=== PATIENT | female | born 1965 | race Caucasian/White ===

== ENCOUNTER → 2017-09-06 | Outpatient (CLI) | payer BC, OTHER ==
--- NOTE | ~2017-09-06 | CNG ---
[facility] [place] [address] CYTO-NONGYN REPORT PROCEDURE Name: JAZIEL ROMERO Room #: REG [facility].#: [id number] Admission: 09/06/17 Date of : 61 Discharge: Report #: [id number] Path Case #: [id number] CYTOPATHOLOGY REPORT COLLECTION DATE: 09/06/2017 RECEIVED DATE: 09/06/2017 SUBMITTING PHYS: Dr. Dakota Love OTHER PHYS: Dr.Michael Ana Cervantes CLINICAL HISTORY: Lung mass; See also [id number] SPECIMEN(S) RECEIVED: A.Bronchial wash B.Fine needle aspiration, Left mainstem C.Brushing, Left mainstem * * * * * * * * * * * * FINAL DIAGNOSIS: A. Bronchial wash: - No malignant cells identified. Bronchial epithelial cells along with macrophages present. B. 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 PLEASE SEE COMMENT. - Interpretation limited by extensive air-drying artifact. C. Lung, left mainstem, brushing: SCANT ATYPICAL CELLS PRESENT CANNOT EXCLUDE NEOPLASTIC CELLS. - Interpretation limited by extensive air-drying artifact. COMMENT: The cell block material performed from the fine needle aspirate of the "left mainstem" shows cells with a low nuclear to cytoplasmic ratio, and monotonous appearing nuclei in an organoid fashion. The background shows marked acute inflammation. Immunohistochemical stains are performed. (Cell block) TTF-1 strong nuclear reactivity Synaptophysin granular reactivity Chromogranin- reactive CD68 nonreactive within the neoplastic cells CD1a - nonreactive CK7 - nonreactive Based on morphology, as well as immunohistochemical stains, the findings are consistent with the rendered diagnosis. Co-review: Dr. Yissel Damian. Findings are relayed to Dr. Dakota Love at 11:05 AM on 09/08/17. [address] [address] CYTO-NONGYN REPORT PROCEDURE Name: JAZIEL ROMERO [facility] [id number] Admission: 09/06/17 Date of : 61 Discharge: Report #: [id number] Path Case #: [id number] The case was discussed at the Thoracic conference on 09/08/17. The findings are incomplete agreement with the concurrent biopsy tissue [id number]. Please see separate report for complete details. (IUV:alexia; 09/07/2017) PATHOLOGIST: Joy Finn M.D. REPORT ELECTRONICALLY SIGNED BY: Joy Finn M.D. DATE/TIME: 09/08/2017 11:06 * * * * * * * * * * * * GROSS PATHOLOGY: A. Bronchial wash: The specimen is submitted unfixed, labeled "Jaziel Romero". Received by the Cytology Department is 33 mL of cloudy red fluid. One ThinPrep slide was prepared. B. Fine needle aspiration, Left mainstem: The specimen is labeled "Jaziel Romero" and consists of four fixed slides. Twenty-two mL of cloudy red fluid in formalin from the needle rinse is also submitted and a formalin fixed cell block only was prepared from this material. C. Brushing, Left mainstem: The specimen is labeled "Jaziel Romero" and consists of a brush tip in fixative and four fixed slides. One ThinPrep slide was prepared. (mm 09.06.2017) CVICU NURSE(S): [facility] INITIAL CPT CODE(S): A; 11902 B; 23797, 39102, 78729, 65685, 41835, 99951, 32419, 08681 C; 97622 Professional services performed by [facility] at [facility] [address], [place] [address] Technical services performed by [facility] at [address] [place] [address]., [address], [place] [address]. [facility] [address] [place] [address], [address] [place] [address] PHONE: [phone] DIRECTOR: Jose De Jesus Jj M.D. * * * END OF REPORT * * *
--- NOTE | ~2017-09-06 | P ---
[facility] [place] [address] PROCEDURE REPORT Name: HIMA VALENTIN CARMELO Room #: REG [facility] Chrissie#: [id number] Admission: 09/06/17 Attend Phys: Dakota Love MD Discharge: Date of : 61 Report #: [id number] THIS REPORT FOR: //name// CC: Rey Love DATE OF SERVICE: 09/06/2017 PROCEDURE: Fiberoptic bronchoscopy with biopsy of right mainstem bronchus lesion. INDICATION: Endobronchial mass. ASA classification class 2. PROCEDURE NOTATION: After discussing risks, benefits of planned procedure with the patient, she desired to proceed. After obtaining informed consent, she was brought to [facility] room 3, was placed on continuous cardiopulmonary monitoring and supplemental oxygen, then given 4% lidocaine nebulized to anesthetize the upper respiratory tract. Once accomplished, she received conscious sedation, a total of 8 mg of Versed and 25 mcg of fentanyl were titrated during the procedure to provide adequate sedation. Once accomplished, bronchoscope was passed through an oral biteblock until the vocal cords were visualized. Vocal cords moved appropriately both before and after procedure. 1% lidocaine was instilled in the vocal cords to provide topical anesthesia. Bronchoscope was then passed in the trachea, which appeared normal. 1% lidocaine was instilled in the tracheobronchial tree bilaterally to provide topical anesthesia. Once complete, airways were surveyed. FINDINGS: Mainstem, lobar, segmental and subsegmental bronchi were all explored on the right and appeared patent without any significant anatomic variation or disease. Left mainstem bronchus about 2-2.5 cm from the mckayla had an endobronchial mass that did not allow further visualization beyond, although instruments could be passed beyond this lesion. The lesion appeared somewhat shiny and vascular, and smooth surface. Endobronchial 19 gauge needle aspirates were obtained of the lesion. Several brushings and then forceps biopsies were obtained of the lesion. Minor bleeding was noted of less than 20 mL. The patient tolerated it well. No noted complications. IMPRESSION: Left mainstem bronchus endobronchial lesion about 2-2.5 cm from the main mckayla, status post multiple biopsies as outlined above. [facility] [address] [place] [address] PROCEDURE REPORT Name: BARBIEHIMA Room #: REG [facility] Chrissie#: [id number] Admission: 09/06/17 Attend Phys: Dakota Love MD Discharge: Date of : 61 Report #: [id number] PLAN: Await cytopathology and histopathology. <ELECTRONICALLY SIGNED> By: Dakota Love MD 09/08/17 1818 [id number] 1213 Dakota Love MD /nt
--- NOTE | ~2017-09-06 | S ---
[facility] [place] [address] SURGICAL PATH RPT PROCEDURE Name: JAZIEL ROMERO Room #: REG [facility].#: [id number] Admission: 09/06/17 Date of : 61 Discharge: Report #: [id number] Path Case #: [id number] PATHOLOGY REPORT COLLECTION DATE: 09/06/2017 RECEIVED DATE: 09/06/2017 SUBMITTING PHYS: Dr. Dakota Love OTHER PHYS: Dr.Michael Ana Cervantes SPECIMEN(S) RECEIVED: A.Biopsy forceps left mainstem lesion * * * * * * * * * * * * FINAL DIAGNOSIS: Lung, left main stem lesion, forceps biopsy: - COMPATIBLE WITH A WELL-DIFFERENTIATED NEUROENDOCRINE TUMOR, (CARCINOID TUMOR). COMMENT: Examination shows alveolar spaces filled with monotonous appearing cells with ample cytoplasm and a low nuclear to cytoplasmic ratio. Mitotic figures, necrosis or gland formation are not identified. There are no keratin pearls present either. Immunohistochemical stains are performed. (Block A1) TTF-1 strong nuclear reactivity Synaptophysin granular reactivity Chromogranin- reactive CD68 nonreactive within the neoplastic cells CD1a - nonreactive AE1/AE3 - reactive Co-review: Dr. Yissel Damian. Findings are communicated to Dr. Kimberley Love at 11:00 Am on 09/08/17. The concurrent cytology [id number] showed a carcinoid tumor in the fine needle aspirate of the left main stem. Please see separate report for details. (IUV:db; 09/07/2017) PATHOLOGIST: Joy Finn M.D. REPORT ELECTRONICALLY SIGNED BY: Joy Finn M.D. DATE/TIME: 09/08/2017 11:26 * * * * * * * * * * * * GROSS PATHOLOGY: Received in formalin labeled "Jaziel Romero LMS biopsy," are [address] [place] [id number] SURGICAL PATH RPT PROCEDURE Name: JAZIEL ROMERO Room #: REG [facility] Chrissie#: [id number] Admission: 09/06/17 Date of : 61 Discharge: Report #: [id number] Path Case #: [id number] segments of bond soft tissue measuring 1.5 x 0.8 x 0.2 cm in aggregate dimensions and ranging from 0.3 to 0.7 cm in maximum dimension. The specimen is submitted entirely in cassette A1. (TSD; 09/06/2017) CLINICAL HISTORY: Lung mass INITIAL CPT CODE(S): A; 32446, 42469, 04720, 75701, 87795, 26593, 35624 Professional services performed by [facility] [address], [place] [address] Technical services performed by [facility] at [address] [place] [address], [facility] [address] [address]. [facility] [place] [address] PHONE: [phone] DIRECTOR: Jose De Jesus Jj M.D. * * * END OF REPORT * * *
== END ==
LOC: CATH 07:16
DX: D3A.090 Benign carcinoid tumor of the bronchus and lung (principal)